=== PATIENT | female | born 1995 | race Caucasian/White ===

== ENCOUNTER 2018-04-13 04:01 | Inpatient (IN) | payer OTHER ==
[~2018-04-13] VITALS: Ht 162.6 cm; Wt 77.1 kg
[~2018-04-13 04:01] MED LIST: ZOFRAN4 M2 PO
[2018-04-13 05:18] LABS: ABSOLUTE BASOPHIL COUNT 0 /CUMM (0.0-0.2); ABSOLUTE EOSINOPHIL COUNT 0.1 /CUMM (0.0-0.7); ABSOLUTE GRANULOCYTE CT 9.9 /CUMM (1.4-6.5); ABSOLUTE LYMPH COUNT 2.5 /CUMM (1.2-3.4); ABSOLUTE MONOCYTE COUNT 0.8 /CUMM (0.10-0.60); BASOPHIL % 0.3 % (0.0-2.0); EOSINOPHIL % 0.5 % (0-5); GRANULOCYTE % 74.6 % (42.2-75.2); HEMATOCRIT 34.8 % (37-47); MEAN PLATELET VOLUME 9.3 FL (7.4-10.4); PLATELET COUNT 305 /CUMM (130-400); RBC DISTRIBUTION WIDTH 17.7 % (11.5-14.5); RED BLOOD CELL CT 4.24 /CUMM (4.20-5.40); WHITE BLOOD CELL COUNT 13.3 /CUMM (4.8-10.8)
--- NOTE | 2018-04-13 06:14 | History & Physical ---
General Information and HPI MD Statement: I have seen and personally examined KITTY JASSO and documented this H&P. Source of Information: patient, old records Exam Limitations: no limitations History of Present Illness: The patient is a 23 year old at 40 weeks and 2 days gestation who presented with a chief complaint of SROM clr fluid @ 230a. Increasing ctx, no vb. +FM. GBS neg. AP care c/b late transfer @ 36wks. 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 No Contractions: q 2 #1 - FHR Baseline: 130 Category: 1 Estimated Weight: 3500 Presentation: vtx Patient for Induction? No Physical Exam: nad cta rrr soft nt gravid ext nt no ed Labs Blood Type & Rh: O pos Antibody Screen: neg Hct/Hgb & Platelets #1: 14.2/43, 317 Hct/Hgb & Platelets #2: 11.9/ 36.3, 336 Rubella: imm VDRL #1: neg VDRL #2: neg HbsAg: neg HIV #1: neg HIV #2 neg 1 Hr P Group B Strep: neg Initial Ultrasound: n/a Anatomy Ultrasound: n/a Ultrasound for EFW: 03/20 [id number] 30% Genetic Testing: cf neg hgb aa Last 24 Hrs of Labs/Lucio: Laboratory Tests 04/13/18 0430: CBC w Diff NO MAN DIFF REQ, RBC 4.24, MCV 82.0, MCH 27.0, MCHC 33.0, RDW 17.7 H , MPV 9.3, Gran % 74.6, Lymphocytes % 18.5 L, Monocytes % 6.1, Eosinophils % 0.5, Basophils % 0.3, Absolute Granulocytes 9.9 H, Absolute Lymphocytes 2.5, Absolute Monocytes 0.8 H, Absolute Eosinophils 0.1, Absolute Basophils 0, Urinalysis MOD H, Urine Color YEL, Urine Clarity CLDY H, Urine pH 6.5, Ur Specific [place] 1.020, Urine Protein 100 H, Urine Ketones NEG, Urine Nitrite NEG, Urine Bilirubin NEG, Urine Urobilinogen 0.2, Ur Leukocyte Esterase SMALL H , Ur Microscopic SEDIMENT EXAMINED, Urine RBC 10-15 H, Urine WBC 15-25 H, Ur Epithelial Cells MOD H, Urine Bacteria MOD H, Urine Mucus MOD H, Urine Hemoglobin LARGE H, Urine Glucose NEG 04/13/18 0417: Membrane Rupture POSITIVE Microbiology 04/13 05 URINE ROUT: Urine Culture - COLB Assessment/Plan Assessment/Plan: 23yo @ 40+wks GBS neg, s/p SROM 230a, afeb, early labor, and maternal status reassuring -admit -expectant mgmt -anesthesia -ansvd As Ranked By This Provider Problem List: 1. Core Measures Venous Thromboembolism VTE Risk Factors / No Mechanical VTE Prophylaxis d/t Early Ambulation No VTE Pharm Prophylaxis d/t LowRisk-No Interven Req'd
--- NOTE | 2018-04-13 08:57 | PN- OBGYN ---
Surgical Brief Attending Note Brief Attending Note: pt comfortable w/ epidural afeb, v/ss fht 130s moderate variability + acc +early dec toco q 2 sve /0 cont current mgmt
--- NOTE | 2018-04-13 11:35 | PN- OBGYN ---
Surgical Brief Attending Note Brief Attending Note: pt comfortable afeb, v/ss fht 140s mod variability +acc no dec toco q 2 sve 9/100/-1 a/p P0 40+wks active labor, s/p srom 230a, gbs neg, and maternal status reassuring -cont currrent mgmt
--- NOTE | 2018-04-13 16:55 | Labor & Delivery Summary ---
Delivery Summary Vaginal Delivery: Vaginal: spontaneous Episiotomy/Lacerations: Type: midline episiotomy and periurethral lac Repair: 2-0 and 3-0 antoine Anesthesia: epidural and local Placenta: Placenta: spontanteous, normal, 3 vessel Anesthesia: block Baby's Weight: 8#15 Apgars - 1 Min: 4 Apgars - 5 Min: 7 (10 - 10) Additional Comments: Pt FD / +2 and pushing w/ epidural. Controlled of live male, apg 01/11/10. Head del over midline episiotomy from ALFIE. Mouth and nose bulb suctioned. Body del w/o difficulty. Cord clamped and cut and given to RN. Episiotomy and periurethral lac repaired usual fashion 2-0 and 3-0 antoine. Good hemostasis. Cord gases sent. 3vc plac del spont intact. Fundus contracted. Pt sedrick well. EBL 400cc.
[2018-04-14 08:59] LABS: ABSOLUTE BASOPHIL COUNT 0 /CUMM (0.0-0.2); ABSOLUTE EOSINOPHIL COUNT 0 /CUMM (0.0-0.7); ABSOLUTE GRANULOCYTE CT 14.9 /CUMM (1.4-6.5); ABSOLUTE LYMPH COUNT 2.1 /CUMM (1.2-3.4); ABSOLUTE MONOCYTE COUNT 0.8 /CUMM (0.10-0.60); BASOPHIL % 0.3 % (0.0-2.0); EOSINOPHIL % 0.3 % (0-5); HEMATOCRIT 30.5 % (37-47); MEAN CORPUSCULAR HGB 27.3 PG (27.0-31.0); MEAN CORPUSCULAR HGB CONC 33.3 G/DL (33.0-37.0); MEAN CORPUSCULAR VOLUME 82.1 FL (81.0-99.0); MEAN PLATELET VOLUME 9.3 FL (7.4-10.4); RBC DISTRIBUTION WIDTH 18.3 % (11.5-14.5); RED BLOOD CELL CT 3.71 /CUMM (4.20-5.40); WHITE BLOOD CELL COUNT 17.9 /CUMM (4.8-10.8)
[2018-04-14 09:50] LABS: GRANULOCYTE % 83.2 % (42.2-75.2); PLATELET COUNT 265 /CUMM (130-400)
--- NOTE | 2018-04-14 14:17 | PN- OBGYN ---
Surgical Brief Attending Note Brief Attending Note: pt feeling well. amb / void / sedrick po. no pain. min vb. +bf. informed consent obtained for circ. afeb, v/ss nad abd soft nt ff juan luis min lochia ext no +1 b/l le ed hct 30 a/p ppd 1 s/p , doing well -cont routine pp care -ant d/c home thomas w/ f/u in 2 wks
--- NOTE | 2018-04-15 12:20 | PN- Post Delivery/GYN ---
Subjective Subjective: Feels well. Pain under good control. Scant lochia rubra. +void. Tolerating POs. Review of Systems Constitutional: Reports: no symptoms. Denies: chills, weakness. EENTM: Reports: no symptoms. Cardiovascular: Reports: peripheral edema. Respiratory: Denies: cough. Gastrointestinal: Denies: abdominal pain, vomiting. Genitourinary: Denies: dysuria. Musculoskeletal: Denies: back pain, neck pain. Skin: Denies: rash. Neurological/Psychological: Denies: depressed, headache, tremors. All Other Systems: Reviewed and Negative Objective Physical Exam: Mucus membranes moist Neck supple Breasts - no evidence of inflammation Cor - regular Abd - soft, NT Fundus - firm, NT, below umb. Back - NT, no CVAT Perineum - intact, dry Extr - benign, symmetrical edema Assessment/Plan Assessment/Plan stable s/p repair vaginal sulcus tear Problem List: 1. state 2. Mother currently breast-feeding 3. Obstetric high vaginal laceration Attending MD Review Statement Attending Statement Attending MD Statement: examined this patient, discussed with family, reviewed EMR data (avail), discussed with nursing
[2018-04-15] MEDS ORDERED: IBUPROFEN800 M1 PO (12:59)
== END 2018-04-15 14:15 | DRG 542 ==
LOC: CBCO 04:01 → GNO 04:30
PROVIDERS: Obstetrics & Gynecology
PROC: 10E0XZZ Delivery of Products of Conception, External Approach (ICD-10-PCS; principal; 2018-04-13)
PROC: 0TQDXZZ Repair Urethra, External Approach (ICD-10-PCS; principal; 2018-04-13)
DX: O71.82 Other specified trauma to perineum and vulva (principal); Z3A.40 40 weeks gestation of pregnancy; Z37.0 Single live birth
CPT/HCPCS: GNOS; 81001; 84112; 87086; J7120